=== PATIENT | male | born 1980 | race Two or more races ===

== ENCOUNTER 2016-10-17 21:53 | Emergency (ER) | payer MEDICAID ==
[~2016-10-17] VITALS: Ht 177.8 cm; Wt 99.8 kg
[~2016-10-17 21:53] MED LIST: CARI250T PO; METH-532 PO; NOR10T GT; TRAM50TA2 PO
[2016-10-17 22:15] VITALS: BP 165/94
[2016-10-17 22:35] LABS: Basophils # (auto) 0 uL; Basophils % (auto) 0.5 % (0.0-2.0); CONDITION Y; Eosinophils # (auto) 0.2 uL; Hematocrit 44.5 % (41.0-53.0); Hemoglobin 15.1 g/dL (13.5-17.5); Lymphocytes # (auto) 2.6 uL; Lymphocytes % (auto) 27.2 % (10.0-50.0); Mean Corpuscular Hemoglobin 30.5 pg (28.0-32.0); Mean Corpuscular Volume 89.8 fL (80.0-100.0); Mean Platelet Volume 9.1 fL (7.4-10.4); Monocytes # (auto) 0.6 uL; Monocytes % (auto) 6.7 % (0.0-12.0); Neutrophils # (auto) 6.1 uL; Neutrophils % (auto) 63.6 % (37.0-80.0); Platelet Count (auto) 218 10^3/uL (140-450); Red Cell Distribution Width 13.5 % (11.6-16.0); White Blood Cell 9.6 10^3/uL (4.4-10.8)
[2016-10-17 22:46] LABS: Urine RBC None Seen /hpf (0 - 3)
[2016-10-17 22:53] LABS: INR 0.98 (0.9-1.15); Partial Thromboplastin Time 26.8 sec (22.64-33.71); Prothrombin Time 10.7 sec (9.37-12.3)
[2016-10-17 22:59] LABS: Albumin 3.9 g/dL (3.4-5.0); Alkaline Phosphatase 102 U/L (45-117); Anion Gap 9 (5-15); Aspartate Aminotransferase 38 U/L (15-37); BUN/Creatinine Ratio 19.5; Bilirubin, Total 0.3 mg/dL (0.2-1.0); Blood Urea Nitrogen 22 mg/dL (7-18); Calcium 8.4 mg/dL (8.5-10.1); Carbon Dioxide 25 mmol/L (21-32); Chloride 104 mmol/L (98-107); GFR African American 96 mL/min; GFR Non-African American 79 mL/min; Glucose 93 mg/dL (74-106); Potassium 3.5 mmol/L (3.5-5.1); Sodium 138 mmol/L (136-145); Total Protein 7.6 g/dL (6.4-8.2)
[2016-10-17 23:00] LABS: Urine Bilirubin Negative (Negative); Urine Blood Negative /uL (Negative); Urine Color Yellow (Yellow); Urine Glucose Normal (Normal); Urine Ketone Negative (Negative); Urine Nitrite Negative (Negative); Urine Urobilinogen Normal (Negative); Urine pH 6.5 (5.0-8.0)
[2016-10-17 23:10] LABS: Temperature: 23.3 C (20.0-25.0)
== END 2016-10-18 02:32 | disposition left against medical advice (07) ==
LOC: ER 22:03
DX: R07.9 Chest pain, unspecified (principal); R42 Dizziness and giddiness; Z53.21 Procedure and treatment not carried out due to patient leaving prior to being seen by health care provider
CPT/HCPCS: 36415; 71020; 80053; 80307; 81001; 83880; 84484; 85025; 85610; 85730; 93005

== ENCOUNTER 2017-03-09 16:09 | Emergency (ER) | payer MEDICAID ==
[~2017-03-09] VITALS: Ht 172.7 cm; Wt 95.3 kg
[2017-03-09 18:53] VITALS: BP 112/69
== END 2017-03-09 21:10 | disposition home or self-care (01) ==
LOC: ER 16:14
DX: S46.911A Strain of unspecified muscle, fascia and tendon at shoulder and upper arm level, right arm, initial encounter (principal); Z79.891 Long term (current) use of opiate analgesic; Z79.899 Other long term (current) drug therapy; X50.0XXA Overexertion from strenuous movement or load, initial encounter; X50.9XXA Other and unspecified overexertion or strenuous movements or postures, initial encounter; Y93.89 Activity, other specified; Y99.8 Other external cause status; Y92.89 Other specified places as the place of occurrence of the external cause
CPT/HCPCS: 73080

== ENCOUNTER 2017-09-04 21:07 | Emergency (ER) | payer MEDICAID ==
[~2017-09-04] VITALS: Ht 170.2 cm; Wt 98.0 kg
[2017-09-04 21:12] VITALS: BP 133/71
[2017-09-04] MEDS ORDERED: cefTRIAXone SOD 1,000 MG VL IM ONE (22:00)
== END 2017-09-04 23:10 | disposition home or self-care (01) ==
LOC: ER 21:11
DX: R59.0 Localized enlarged lymph nodes (principal); H44.002 Unspecified purulent endophthalmitis, left eye; Z79.899 Other long term (current) drug therapy
CPT/HCPCS: 96372; 99283; J0696

== ENCOUNTER 2017-12-30 11:19 | Emergency (ER) | payer MEDICAID ==
[~2017-12-30] VITALS: Ht 167.6 cm; Wt 99.8 kg
[2017-12-30 11:36] VITALS: BP 157/91
[2017-12-30] MEDS ORDERED: METHOCARBAMOL 500 MG TAB PO ONE (12:45)
[2017-12-30] MEDS ORDERED: KETOROLAC TROMETH 60MG/2ML VIAL IM ONE (12:45)
== END 2017-12-30 13:46 | disposition home or self-care (01) ==
LOC: ER 11:19
DX: M54.5 Low back pain (principal); X50.1XXA Overexertion from prolonged static or awkward postures, initial encounter; Y93.89 Activity, other specified; Y92.89 Other specified places as the place of occurrence of the external cause; Y99.8 Other external cause status
CPT/HCPCS: 72100; 96372; 99284; J1885

== ENCOUNTER 2018-01-25 11:28 | Emergency (ER) | payer MEDICAID ==
[~2018-01-25] VITALS: Ht 170.2 cm; Wt 99.8 kg
[2018-01-25 12:07] VITALS: BP 140/94
== END 2018-01-25 12:54 | disposition home or self-care (01) ==
LOC: ER 11:28
DX: L03.317 Cellulitis of buttock (principal)

== ENCOUNTER 2019-10-02 17:22 | Emergency (ER) | payer OTHER, MEDICAID ==
[~2019-10-02] VITALS: Ht 170.2 cm; Wt 108.9 kg
[2019-10-02 17:43] VITALS: BP 148/88
[2019-10-02] MEDS ORDERED: ONDANSETRON ODT 4 MG TAB PO ONE (19:15)
== END 2019-10-02 20:58 | disposition home or self-care (01) ==
LOC: ER 17:22
DX: S63.502A Unspecified sprain of left wrist, initial encounter (principal); M25.552 Pain in left hip; M54.2 Cervicalgia; V89.2XXA Person injured in unspecified motor-vehicle accident, traffic, initial encounter; Y93.I9 Activity, other involving external motion; Y92.410 Unspecified street and highway as the place of occurrence of the external cause; Y99.8 Other external cause status
CPT/HCPCS: 29105; 72100; 73030; 73110; 73130; 73502; 99284; Q0162

== ENCOUNTER 2023-02-25 13:23 | Emergency (ER) | payer SELFPAY ==
[~2023-02-25] VITALS: Ht 170.2 cm; Wt 110.0 kg
[2023-02-25 15:24] VITALS: BP 146/95; PULSE 86; TEMP 98.3
[2023-02-25] MEDS ORDERED: DexAMETHasone SOD PHOS 10MG/1ML VIAL INJ IM ONE (16:15)
[2023-02-25] MEDS ORDERED: IPRATROPIUM BROM 0.5 MG/2.5ML INH SOL NEB ONE (16:15)
[2023-02-25] MEDS ORDERED: ALBUTEROL SULF 2.5 MG/0.5ML(0.5%) NEB SOLN NEB ONE (16:15)
[2023-02-25 16:17] VITALS: RESP 20; O2SAT 99
[2023-02-25] MEDS ORDERED: BENZ100C97 PO (16:23)
[2023-02-25] MEDS ORDERED: LORA10CA PO (16:23)
[2023-02-25] MEDS ORDERED: ALBU108A5 IN (16:23)
[2023-02-25] MEDS ORDERED: ACET500T58 PO (16:23)
== END 2023-02-25 16:40 | disposition home or self-care (01) ==
LOC: ER 13:23
DX: J06.9 Acute upper respiratory infection, unspecified (principal)
CPT/HCPCS: 71046; 94640; 96372; 99283; J1100; J7644

== ENCOUNTER 2024-05-29 04:36 | Emergency (ER) | payer BC, MEDICAID ==
[~2024-05-29] VITALS: Ht 167.6 cm; Wt 109.8 kg
[~2024-05-29 04:36] MED LIST changes: +ACET500T58 PO; +ALBU108A5 IN; +BENZ100C97 PO; +LORA10CA PO
[2024-05-29 05:21] LABS: Urine Bacteria None Seen /hpf (None Seen)
[2024-05-29 05:43] LABS: Urine Blood Negative /uL (Negative); Urine Clarity Clear (Clear); Urine Color Yellow (Yellow); Urine Hyaline Cast FEW /lpf (0 - 2); Urine Mucus FEW (None Seen); Urine Protein, UAD Negative (Negative); Urine Specific Gravity 1.027 (1.001-1.035); Urine Squamous Epithelial Cell FEW /hpf (<5); Urine Urobilinogen Normal (Negative); Urine WBC 4 /HPF (0-3); Urine pH 5.5 (5.0-9.0)
--- NOTE | 2024-05-29 06:52 | ED.PDOC ---
General HPI Comments A 44 YEAR OLD MALE PRESENTS TO THE ED WITH COMPLAINT OF UTI SYMPTOMS. STATES HE HAS BEEN EXPERIENCING PAINFUL URINATION WITH A BURNING SENSATION AND MILD PENILE DISCHARGE THAT IS CLEAR IN COLOR FOR THE PAST 2 DAYS. PATIENT DENIES DYSURIA, FLANK PAIN, FEVER, CHILLS, SHORTNESS OF BREATH, CHEST PAIN, ABDOMINAL PAIN, NAUSEA, VOMITING, HEADACHE, OR OTHER COMPLAINTS. NO OTHER SYMPTOMS OR MODIFYING FACTORS AT THIS TIME. PATIENT IS ALERT, ORIENTED X 4, AND HAS STEADY GAIT. Chief Complaint: Urinary Time Seen by MD: 06:21 Primary Care Provider: ADA Maza notes: Nurses Notes, Medications, Allergies Allergies: Coded Allergies: NO KNOWN ALLERGIES (Unverified , 12/05/11) Home Meds Active Scripts Doxycycline (Monohydrate) (Doxycycline) 100 Mg Cap, 100 MG PO BID, #14 CAP Prov:JESICA RIVERS PA 05/29/24 Albuterol Sulfate (Albuterol Sulfate Hfa) 108 Mcg/Act Aer, 108 MCG IN Q4HP PRN, #1 AER Prov:NICKIE OROPEZA PAC 02/25/23 Benzonatate (Benzonatate) 100 Mg Cap, 1 CAP PO TID, #20 CAP Prov:NICKIE OROPEZA PAC 02/25/23 Loratadine (Claritin) 10 Mg Cap, 10 MG PO DAILY for 14 Days, #14 CAP Prov:NICKIE OROPEZA PAC 02/25/23 Acetaminophen (Acetaminophen) 500 Mg Tab, 500 MG PO Q4HP PRN, #30 TAB Prov:NICKIE OROPEZA PAC 02/25/23 Tramadol Hcl (Tramadol Hcl) 50 Mg Tab, 50 MG PO Q6HP PRN, #30 TAB Prov:MATEO ADAMES N.P. 02/03/13 Methocarbamol (Robaxin-750) 750 Mg Tab, 750 MG PO TIDP PRN, #30 TAB Prov:MATEO ADAMES N.P. 02/03/13 Reported Medications Hydrocodone-Acetaminophen ([place] 10/325MG) 1 Tab Tb, 0 GT 02/03/13 Carisoprodol (Soma) 250 Mg Tab, 0 PO, TAB 02/03/13 Information Source: Patient Mode of Arrival: Ambulatory Severity: Moderate Inability to void: None Timing: Days Duration: Since onset, Days Prehospital treatment: None Onset: Spontaneous Symptoms: Dysuria, Penile discharge History of: None Location: None Penile discharge: Yellow Modifying factors: None associated signs and symptoms: Dysuria, Penile Discharge Past Medical History Past Medical History (Other): CHRONIC LOW BACK PAIN, DDD OF LOW BACK Surgical History (Other): LOW BACK SURGERY Family History Family History: Reviewed,noncontributory to illness Social History Smoker: Non-Smoker Alcohol: Denies ETOH Use Drugs: Denies Drug Use Lives In: Home Constitutional: denies: chills, diaphoresis, fatigue, fever, malaise, sweats, weakness, others EENTM: denies: blurred vision, double vision, ear bleeding, ear discharge, ear drainage, ear pain, ear ringing, eye pain, eye redness, hearing loss, mouth pain, mouth swelling, nasal discharge, nose bleeding, nose congestion, nose pain, photophobia, tearing, throat pain, throat swelling, voice changes, others Respiratory: denies: cough, hemoptysis, orthopnea, SOB at rest, shortness of breath, SOB with excertion, stridor, wheezing, others Cardiovascular: denies: chest pain, dizzy spells, diaphoresis, Dyspnea on exertion, edema, irregular heart beat, left arm pain, lightheadedness, palpitations, PND, syncope, others Gastrointestinal: denies: abdomen distended, abdominal pain, blood streaked bowels, constipated, diarrhea, dysphagia, difficulty swallowing, hematemesis, melena, nausea, poor appetite, poor fluid intake, rectal bleeding, rectal pain, vomiting, others Genitourinary: reports: burning, dysuria, penile discharge; denies: flank pain, frequency, hematuria, incontinence, penile sore, pain, testicle pain, testicle swelling, urgency, others Neurological: denies: dizziness, fainting, headache, left sided numbness, left sided weakness, numbness, paresthesia, pre-existing deficit, right sided numbness, right sided weakness, seizure, speech problems, tingling, tremors, weakness, others Musculoskeletal: denies: back pain, gout, joint pain, joint swelling, muscle pain, muscle stiffness, neck pain, others Integumetry: denies: bruises, change in color, change in hair/nails, dryness, laceration, lesions, lumps, rash, wounds, others Allergic/Immunocompromised: denies: Difficulty Healing, Frequent Infections, Hives, Itching, others Hematologic/Lymphatic: denies: anemia, blood clots, easy bleeding, easy bruising, swollen glands, others Endocrine: denies: excessive hunger, excessive sweating, excessive thirst, excessive urination, flushing, intolerance to cold, intolerance to heat, unexplained weight gain, unexplained weight loss, others Psychiatric: denies: anxiety, bipolar disorder, depression, hopeless, panic disorder, schizophrenia, sleepless, suicidal, others All Other Systems: Reviewed and Negative Physical Exam General Appearance: No Apparent Distress, Normal HEENT: Normal ENT Inspection, PERRL/EOMI, Pharynx Normal, TMs Normal Neck: Full Range of Motion, Non-Tender, Normal, Normal Inspection Respiratory: Chest Non-Tender, Lungs Clear, No Accessory Muscle Use, No Respiratory Distress, Normal Breath Sounds Cardiovascular: No Edema, No JVD, No Murmur, No Gallop, Normal Peripheral Pulses, Regular Rate/Rhythm Breast Exam: Deferred Gastrointestinal: No Organomegaly, Non Tender, No Pulsatile Mass, Normal Bowel Sounds, Soft Genitalia: Penis (MILD YELLOW PENILE DISCHARGE, NO SKIN RASH AND SWELLING OF PENIS. 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 Was a procedure done?: No Differential Diagnosis Kidney stone (Female): N/A Kidney stone (Male): N/A Penile/Scrotal: Epidiymitis, STD, UTI, Urolithiasis Urinary Problem (Male): Epididymitis, Urethritis, Urolithiasis, UTI Urinary Problem (Female): N/A X-Ray, Labs, Meds, VS Vital Signs Date Time Temp Pulse Resp B/P (MAP) Pulse Ox O2 Delivery O2 Flow Rate FiO2 05/29/24 07:10 83 16 97 Room Air 05/29/24 07:10 97.7 83 16 144/81 (102) 97 97.7 05/29/24 04:42 97.7 83 16 144/81 (102) 97 97.7 Lab Test 05/29/24 07:05 05/29/24 04:44 Range/Units White Blood Count Pending Red Blood Count Pending Hemoglobin Pending Hematocrit Pending Mean Corpuscular Volume Pending Mean Corpuscular Hemoglobin Pending Mean Corpuscular Hemoglobin Concent Pending Red Cell Distribution Width Pending Platelet Count Pending Mean Platelet Volume Pending Neutrophils (%) (Auto) Pending Lymphocytes (%) (Auto) Pending Monocytes (%) (Auto) Pending Basophils (%) (Auto) Pending Neutrophils # (Auto) Pending Lymphocytes # (Auto) Pending Monocytes # (Auto) Pending Sodium Level Pending Potassium Level Pending Chloride Level Pending Carbon Dioxide Level Pending Anion Gap Pending Blood Urea Nitrogen Pending Creatinine Pending Glomerular Filtration Rate Calc Pending BUN/Creatinine Ratio Pending Serum Glucose Pending Calcium Level Pending Urine Color Yellow Yellow Urine Clarity Clear Clear Urine pH 5.5 5.0-9.0 Urine Specific [place] 1.027 1.001-1.035 Urine Protein Negative Negative Urine Ketones Negative Negative Urine Blood Negative Negative /uL Urine Nitrite Negative Negative Urine Bilirubin Negative Negative Urine Urobilinogen Normal Negative mg/dL Urine Leukocyte Esterase Negative Negative /uL Urine RBC None seen 0 - 3 /hpf Urine Microscopic WBC 4 H 0-3 /HPF Urine Squamous Epithelial Cells Few <5 /hpf Urine Bacteria None seen None Seen /hpf Urine Hyaline Casts Few 0 - 2 /lpf Urine Mucus Few None Seen Urine Glucose Normal Normal mg/dL Chlamydia trachomatis ([place]) Pending Neisseria gonorrhoeae ([place]) Pending Procedure: CT CT AB PEL WO CON-NO ORAL OR IV 05/29/2024 06:50 AM Indication: UTI SYMPTOMS WITH LOW BACK PAIN Comparison Study: None Technique: Axial images were obtained and reformatted in coronal and sagittal planes. All CT scans at this medical facility are performed using dose modulation techniques as appropriate to a performed exam including the follow ing: Automated exposure control was utilized; adjustment of the MA and/or KV according to patient size; and use of iterative reconstruction technique. CT Dose: CTDI volume is 23.04 mGy. Dose-length product is 1198.94 mGy*cm FINDINGS: Lower Chest: Unremarkable. Hepatobiliary: Unremarkable. Spleen: Unremarkable. Pancreas: Unremarkable. Adrenal Glands: Unremarkable. tract: The kidneys are normal in size bilaterally without hydronephrosis or nephrolithiasis. The urinary bladder is unremarkable. GI tract: The stomach is grossly normal in appearance. No evidence of small bowel obstruction. Scattered colonic diverticula are noted without evidence of diverticulitis. The appendix is not visualized. No inflammatory change is noted in the right lower quadrant. Lymphatics: No mesenteric, retroperitoneal or periportal lymphadenopathy. Vasculature: The abdominal aorta is normal in in caliber. Pelvic Organs: Unremarkable Bones/soft tissues: No acute osseous abnormality. Severe narrowing of the L5-S1 disc height. No significant central canal or neural foramina stenosis noted in this CT scan. Postoperative changes of the left acetabulum noted. [id number] left hip joint osteoarthritis. Other: None. IMPRESSION: 1. No CT evidence for acute intra-abdominal or intrapelvic process. 2. Degenerative disc disease in the lower lumbar spine.Postoperative changes 3. Of the left acetabulum with associated moderate left hip joint osteoarthritis. ATED BY: ETELVINA KIRAN MD DICTATED DATE/TIME: 05/29/24725 SIGNED BY: ETELVINA KIRAN MD SIGNED DATE/TIME: 05/29/24725 CC: X-Ray, Labs, Meds, VS Comment EXTERNAL MEDICAL RECORDS REVIEWED: [NONE] INDEPENDENT HISTORIANS: [NONE] SOCIAL DETERMINANTS OF HEALTH: [NONE] LABS ORDERED: UA, GC/CHLAMYDIA AMPLIFICATION REVIEWED AND INTERPRETED RESULTS: NORMAL IMAGING ORDERED: CT ABD/PEL TREATMENTS ORDERED: ROCEPHIN 1G IM PROCEDURES PERFORMED: NONE CRITICAL CARE TIME: NONE I HAVE DISCUSSED THE PATIENT WITH THE ATTENDING PHYSICIAN DR. BROWN AND HE AGREES WITH THE PATIENT'S PLAN OF CARE AND DISPOSITION. BASED ON HISTORY OF PRESENT ILLNESS, AND PHYSICAL EXAM, PATIENT WILL BE DISCHARGED HOME. DISCUSSED PLAN FOR DISCHARGE HOME WITH RX [DOXYCYCLINE]. MEDICATION WARNINGS GIVEN. SHARED DECISION MAKING: PATIENT INSTRUCTED TO FOLLOW UP WITH PRIMARY CARE PROVIDER IN 1-2 DAYS FOR RE-EVALUATION OF SYMPTOMS. PATIENT VERBALIZES UNDERSTANDING TO RETURN TO ED FOR NEW OR WORSENING SYMPTOMS OR IF FOLLOW UP WITH PCP CANNOT BE OBTAINED. PATIENT FEELS COMFORTABLE GOING HOME AT THIS TIME. ALL QUESTIONS ADDRESSED AT TIME OF DISCHARGE. Images Reviewed?: Images reviewed and evaluated by me Time of 1ST Reevaluation: 08:00 Reevaluation 1ST: Improved Patient Education/Counseling: Diagnosis, Treatment, Need For Follow Up Family Education/Counseling: Diagnosis, Treatment, Need For Follow Up Medical Screening: No EMC Exist At This Time Departure 1 Departure Time of Disposition: 08:00 Impression: Primary Impression: Urethritis Additional Impression: Screening for STDs (sexually transmitted diseases) Disposition: HOME / SELF CARE / HOMELESS Condition: Stable Additional Instructions: FOLLOW-UP WITH PCP IN 1 TO 2 DAYS. TAKE MEDICATIONS PRESCRIBED. RETURN TO ED FOR ANY NEW OR WORSENING SYMPTOMS. e-Prescriptions Doxycycline (Monohydrate) (Doxycycline) 100 Mg Cap 100 MG PO BID, #14 CAP Prov: JESICA RIVERS 05/29/24 Discharged With: Self Critical Care Note Critical Care Time?: No Stability Stability form required: No I personally scribed for JESICA RIVERS ([email or web address]) on 05/29/24 at 06:52. Electronically submitted by Lexx Ryan ([email or web address]). I personally scribed for JESICA RIVERS ([email or web address]) on 05/29/24 at 07:35. Electronically submitted by Lexx Ryan ([email or web address]). JESICA RIVERS May 29, 2024 06:52
[2024-05-29 07:10] VITALS: BP 144/81; PULSE 83; RESP 16; TEMP 97.7; O2SAT 97
--- NOTE | 2024-05-29 07:28 | DVH ---
Procedure: CT CT AB PEL WO CON-NO ORAL OR IV 05/29/2024 06:50 AM Indication: UTI SYMPTOMS WITH LOW BACK PAIN Comparison Study: None Technique: Axial images were obtained and reformatted in coronal and sagittal planes. All CT scans at this medical facility are performed using dose modulation techniques as appropriate to a performed e xam including the following: Automated exposure control was utilized; adjustment of the MA and/or KV according to patient size; and use of iterative reconstruction technique. CT Dose: CTDI volume is 23. 04 mGy. Dose-length product is 1198.94 mGy*cm FINDINGS: Lower Chest: Unremarkable. Hepatobiliary: Unremarkable. Spleen: Unremarkable. Pancreas: Unremarkable. Adrenal Glands: Unremarkable. tract: The kidneys are normal in size bilaterally without hydronephrosis or nephrolithiasis. The u rinary bladder is unremarkable. GI tract: The stomach is grossly normal in appearance. No evidence of small bowel obstruction. Scatte red colonic diverticula are noted without evidence of diverticulitis. The appendix is not visualized. No inflammatory change is noted in the right lower quadrant. Lymphatics: No mesenteric, retroperitoneal or periportal lymphadenopathy. Vasculature: The abdominal aorta is normal in in caliber. Pelvic Organs: Unremarkable Bones/soft tissues: No acute osseous abnormality. Severe narrowing of the L5-S1 disc height. No sign ificant central canal or neural foramina stenosis noted in this CT scan. Postoperative changes of the left acetabulum noted. [id number] left hip joint osteoarthritis. Other: None. IMPRESSION: 1. No CT evidence for acute intra-abdominal or intrapelvic process. 2. Degenerative disc disease in the lower lumbar spine.Postoperative changes 3. Of the left acetabulum with associated moderate left hip joint osteoarthritis.
[2024-05-29 07:35] LABS: Potassium 4.4 mmol/L (3.5-5.1); Sodium 142 mmol/L (136-145)
[2024-05-29 07:36] LABS: Anion Gap 6 (5-15); Carbon Dioxide 27 mmol/L (20-31)
[2024-05-29] MEDS ORDERED: DOXY1CAP58 PO (07:37)
[2024-05-29 07:38] LABS: Chloride 109 mmol/L (98-107)
[2024-05-29 07:40] LABS: Basophils # (auto) 0 10 ^3/uL (0-0.2); Basophils % (auto) 0.7 % (0.0-2.0); Eosinophils # (auto) 0.1 10 ^3/uL (0-0.8); Eosinophils % (auto) 2.1 % (0.0-7.0); Hematocrit 41.2 % (41.0-53.0); Hemoglobin 14.3 g/dL (13.5-17.5); Lymphocytes # (auto) 2.1 10 ^3/uL (0.4-5.4); Lymphocytes % (auto) 39.6 % (10.0-50.0); Mean Corpuscular Hemoglobin 30.8 pg (28.0-32.0); Mean Corpuscular Hgb Conc. 34.7 g/dL (32.0-36.0); Mean Corpuscular Volume 88.9 fL (80.0-100.0); Monocytes # (auto) 0.4 10 ^3/uL (0-1.3); Monocytes % (auto) 6.9 % (0.0-12.0); Neutrophils # (auto) 2.7 10 ^3/uL (1.6-8.6); Neutrophils % (auto) 50.7 % (37.0-80.0); Nucleated Red Blood Cells % 0.1 %; Platelet Count (auto) 152 10^3/uL (140-450); Red Blood Cells 4.63 10^6/uL (4.5-5.90); Red Cell Distribution Width 12.6 % (11.8-14.3); White Blood Cell 5.3 10^3/uL (4.4-10.8)
[2024-05-29 07:41] LABS: BUN/Creatinine Ratio 16.1 (10.0-20.0); Blood Urea Nitrogen 15 mg/dL (9-23); Glucose 102 mg/dL (74-106)
[2024-05-29] MEDS: cefTRIAXone SOD 1,000 MG VL IM ONE (07:47)
[2024-05-31 06:07] LABS: Chlamydia Trachomatis, NAA Negative (Negative); Neisseria gonorrhoeae, NAA Negative (Negative)
== END 2024-05-29 08:00 | disposition home or self-care (01) ==
LOC: ER 04:36
DX: N34.2 Other urethritis (principal); G89.29 Other chronic pain; Z11.3 Encounter for screening for infections with a predominantly sexual mode of transmission; Z79.899 Other long term (current) drug therapy
CPT/HCPCS: 36415; 74176; 80048; 81001; 85025; 87491; 87591; 96372; 99285; J0696